=== PATIENT | female | born 1960 | race Caucasian/White ===

== ENCOUNTER 2021-10-04 12:46 | Outpatient (CLI) | payer MEDICAID ==
--- NOTE | 2021-10-04 15:00 | XRAY Report ---
PROCEDURE: Ribs 2 View RT INDICATIONS: R RIB PX TECHNIQUE: 2 views of the right ribs were acquired. COMPARISON: None FINDINGS: Surgical changes and devices: None. Bones and chest wall: No fractures or dislocations. No suspicious bony lesions. Incompletely healed fracture of the 10th anterior lateral right rib with nonbridging callus. Question bony deficiency of the distal humerus. Overlying soft tissues appear unremarkable. Lungs and pleura: The visualized lung appears clear. No pleural effusions or pneumothorax are visib le. IMPRESSION: Subacute right 10th rib fracture. Question bony deficiency of the distal humerus. Comment: Consider films of the right humerus to evaluate question of bony deficiency. Reviewed by: Elroy Al MD on 10/04/2021 2:58 PM PST Approved by: Elroy Al MD on 10/04/2021 2:58 PM PST Station ID: [id number]
== END 2021-10-04 23:59 | disposition home or self-care (01) ==
LOC: DI.N 12:46
PROVIDERS: ATTEND Family Medicine
DX: S22.31XA Fracture of one rib, right side, initial encounter for closed fracture (principal)